=== PATIENT | female | born 1950 | race Two or more races ===

== ENCOUNTER 2024-07-19 11:06 | Emergency (ER) | payer OTHER ==
[~2024-07-19] VITALS: Ht 157.5 cm; Wt 71.2 kg
[~2024-07-19 11:06] MED LIST: ATORVASTATIN CA20 MG; FOSAMAX70 MG; IRBESARTAN-HCT1 EACH; SYNTHROID75 MCG
[2024-07-19] MEDS ORDERED: 0.9 % SODIUM CHLORIDE 500 ML IV ONE (11:45)
[2024-07-19] MEDS ORDERED: FAMOTIDINE/PF 20 MG/2 ML VIAL IV PUSH ONE (12:00)
[2024-07-19] MEDS ORDERED: CHOLESTYRAMINE/ASPARTAME LIGHT 4 G/PKT PACKET PO NR (12:00)
[2024-07-19 13:02] LABS: HEMATOCRIT 37.7 % (36.0-45.00); HEMOGLOBIN 13.3 g/dL (12.0-15.00); MEAN CELL VOLUME 85.4 fL (80.00-100.00); MEAN CORPUSCULAR HEMOGLOBIN 30.1 pg (27.00-32.0); MEAN CORPUSCULAR HGB CONC 35.2 g/dl (32.0-36.0); PLATELET COUNT 301 K/uL (150-450); RED BLOOD COUNT 4.41 M/uL (4.00-6.00)
[2024-07-19 13:24] LABS: AMYLASE 49 U/L (25-115); LIPASE 24 U/L (13-75)
[2024-07-19 13:30] LABS: ALBUMIN 3.9 gm/dL (3.4-5.0); BILIRUBIN TOTAL 0.53 mg/dL (0.3-1.2); CALCIUM 9.1 mg/dL (8.5-10.1); CREATININE SERUM 0.94 mg/dL (0.55-1.02); GFR 58.21; GLOBULINA 2.5 G/DL (2.4-3.5); POTASSIUM 3.25 mEq/L (3.5-5.1); TOTAL PROTEIN 6.4 gm/dL (6.4-8.2)
[2024-07-19] MEDS ORDERED: PEPCID AC20 MG PO (15:06)
[2024-07-19] MEDS ORDERED: PROBIOTIC & AC1 EACH PO (15:06)
== END 2024-07-19 16:12 | disposition home or self-care (01) ==
LOC: ER 11:08
PROVIDERS: General Practice
DX: K52.89 Other specified noninfective gastroenteritis and colitis (principal); E78.00 Pure hypercholesterolemia, unspecified; E03.8 Other specified hypothyroidism; I10 Essential (primary) hypertension; M81.8 Other osteoporosis without current pathological fracture; E87.6 Hypokalemia
CPT/HCPCS: 36415; 99282; J3490; J7042